=== PATIENT | female | born 1955 | race Caucasian/White ===

== ENCOUNTER 2018-11-24 05:27 | Emergency (ER) | payer MEDICAID, SELFPAY ==
[2018-11-24 05:29] VITALS: BP 154/81; PULSE 65; RESP 18; TEMP 36.4; O2SAT 95; BMI 19.8
--- NOTE | 2018-11-24 05:41 | CT_ITS ---
STUDY: CT ABDOMEN AND PELVIS WITH CONTRAST REASON FOR EXAM: Female, 63 years old. Nausea, vomiting and left lower quadrant bowel pain. Patient has elevated white count. RADIATION DOSAGE (If Supplied By Facility): CTDIvol = ( 20.8 ) mGy, DLP = ( 333.07 ) mGycm TECHNIQUE: Transaxial images were obtained from the dome of the diaphragm to the symphysis pubis without oral contrast. 100 ml IV Isovue 300 was administered. Sagittal and coronal images were reconstructed. Individualized dose optimization techniques were used for this CT. COMPARISON: None. FINDINGS: There is a nodular area within the right middle lobe measuring approximately 7.1 mm The visualized portions of the heart are within normal limits. There is hepatomegaly with diffuse hepatic enlargement. Liver measures approximately 18.6 cm in greatest cephalocaudal dimension. Small lucencies visible in the left lobe liver measuring approximately 6.5 mm in greatest dimension. There are multiple gallstones. Normal spleen. Normal pancreas. Normal bilateral adrenal glands. There is a cyst in the right kidney measuring up to 7.5 mm in greatest dimension. There are also small left-sided renal cysts. There is no evidence for hydronephrosis, hydroureter or radiopaque ureteral calculi. Normal visualized stomach. There is dilated small bowel with maximum transverse dimension of approximately 3.2 cm in greatest dimension. There is a small amount of ascites. Appears to be abnormal thickening of the nguyen of the colon suggesting possible colitis. This appears to involve the descending colon. Surgical sutures are visible within the mid small bowel suggesting sequela of previous bowel resection. This may be the site of transition as well. There is a small amount of ascites. There is non-visualization of the appendix. Normal abdominal aorta. There is venous distention of the inferior vena cava (IVC). Normal retroperitoneum. Normal urinary bladder. Normal abdominal wall. There is spondylolysis of L5. There are multilevel degenerative changes of the thoracic and lumbar spine. CT/Abdomen/Pelvis W IV Cont ONLY IMPRESSION: 1. Small bowel obstruction. 2. Possible sequela of colitis involving the descending colon. Electronically Signed: Krista Olvera MD at 7:05 EDT , Service support ,
--- NOTE | 2018-11-24 05:43 | ED.VISSUMM ---
- ER Visit Summary Date of Service: 11/24/18 Chief Complaint: Nausea and vomiting History of Present Illness: The patient is a 63 F history of prior colon CA with positive lymph nodes. Had a partial colectomy and appendectomy done at a hospital in [facility]. She does not undergo chemotherapy. Around 130 this morning started having nausea vomiting. No diarrhea. Had a bowel movement today. No melena or hematemesis. No fever. Denies any dysuria. Also complaining of abdominal pain primarily left lower quadrant. States that began after all the vomiting. Physical Examination: Older female no acute distress. Vital signs are stable and afebrile. HEENT exam mildly dry mucous membranes. Neck nontender no lymphadenopathy. Lungs clear to auscultation bilaterally. Heart regular rhythm rate about 65. No murmur. Abdomen soft. Nondistended. Normal bowel sounds. Tender primarily in the left lower quadrant. No peritoneal signs. Right upper quadrant nontender. No signs of obstruction. Well-healed midline horizontal abdominal incision. Patient is moving all 4 extremities. Neurovascular intact. Calves are nontender without edema or cords. Neurologically she is awake and alert with no focal motor deficits. Test Results: White count of 14. Hemoglobin of 12. Chemistries normal normal creatinine and gap. Liver enzymes and lipase both normal. CT abdomen and pelvis with IV contrast only shows acute small bowel obstruction with descending colitis. Read by the radiologist and reviewed by me. Emergency Department Course and Treatment: Patient treated with IV fluids for dehydration. IV Zofran for nausea and IV morphine for pain. Patient doing better on repeat exam at 7:10 AM. Currently she needs no further pain meds or nausea meds. I discussed all test results with her. She is okay with admission. Treatment Plan: I spoke to Dr. Amanda Victoria the hospitalist to admit the patient. Also Dr. Nitin Francisco to for surgical consultation Disposition: Discharge Impression: Acute nausea and vomiting with abdominal pain Acute small bowel obstruction w/ possible colitis History of prior colon CA with partial colectomy and prior appendectomy This note was generated with [employer] software. It may contain incorrect words, spelling, and punctuation that were not noted in review of the chart prior to signing ED Disposition - Plan for ED Patient: Disposition: Home or Assisted Living Instructions: ED Nausea Vomiting Prescriptions: Ondansetron [Zofran Odt] 4 mg PO Q8H PRN PRN #7 tab PRN Reason: nauea Referrals: Care Physician,No Primary [Primary Care Provider] - As Needed Additional Instructions: Plenty of fluids and rest. Increase diet slowly and as tolerated. Zofran as needed for nausea. Follow-up if not improving or return if feeling worse.
[2018-11-24] MEDS: 0.9% Normal Saline 1,000 ML 999 ML IV (05:46)
[2018-11-24] MEDS: Ondansetron 4 MG/2 ML Vial IV (05:46)
[2018-11-24 05:49] LABS: Absolute Lymphocyte Count 2.56 X10^3/ul (0.83-4.51); Absolute Neutrophil Count 10.9 X10^3/uL (2.0-7.7); Basophil# 0.02 X10^3/uL; Basophil% 0.1 % (0-1); Eosinophil# 0.01 X10^3/uL; Eosinophils% 0.1 % (0-5); Hematocrit 38.2 % (37-47); Hemoglobin 12.6 g/dl (12.0-15.0); Lymphocyte # 2.56 X10^3/ul (4.0); Lymphocyte % 18.3 % (19-41); Mean Corpuscular Hgb 25.6 pg (27.0-32.0); Mean Corpuscular Volume 77.5 fL (81-99); Mean Platelet Vol. 9.7 fl (6.2-12.0); Monocyte# 0.45 X10^3/uL; Monocyte% 3.2 % (0-10); Neutrophil # 10.94 X10^3/uL (2.7-7.7); Neutrophil % 78.1 % (47-70); Platelet Count 291 K/mm3 (150-450); RBC Distribution Width CV 19.1 % (11.6-14.6); RBC Distribution Width SD 52.4 fl (35.1-43.9); Red Blood Count 4.93 M/mm3 (4.2-5.4)
[2018-11-24 05:53] LABS: POSITIVE COUNT NO; POSITIVE DIFFERENTIAL NO; POSITIVE MORPHOLOGY NO
[2018-11-24 06:05] LABS: AST(SGOT) 20 U/L (15-37); Alanine Aminotransfer ALT/SGPT 30 U/L (13-56); Albumin, Serum 3.9 g/dL (3.2-5.0); Alkaline Phosphatase 67 U/L (45-117); Anion Gap 7 (5-15); BUN 11 mg/dL (7-18); BUN/Creat Ratio 15.7 RATIO (10-20); Bilirubin, Direct 0.06 mg/dL (0.00-0.30); Calcium,Total 8.5 mg/dL (8.5-10.1); Chloride 107 mmol/L (98-107); EST Glomerular Filtration Rate 90 mL/min (>60); Est Glom Filt Rate - Afr Amer 108 mL/min (>60); Estimated Creatinine Clearance 74.67 ml/min; Globulin 3.1 g/dL (2.2-4.2); Glucose 134 mg/dL (74-106); Lipase 185 U/L (73-393); Potassium 3.8 mmol/L (3.5-5.1); Sodium Level 139 mmol/L (136-145)
--- NOTE | 2018-11-24 06:20 | ED.DEP ---
ED Disposition - Plan for ED Patient: Disposition: Home or Assisted Living Instructions: ED Nausea Vomiting Prescriptions: Ondansetron [Zofran Odt] 4 mg PO Q8H PRN PRN #7 tab PRN Reason: nauea Referrals: Care Physician,No Primary [Primary Care Provider] - As Needed Additional Instructions: Plenty of fluids and rest. Increase diet slowly and as tolerated. Zofran as needed for nausea. Follow-up if not improving or return if feeling worse.
[2018-11-24] MEDS: Morphine 2 MG/ML Syringe IV (06:25)
--- NOTE | 2018-11-24 07:08 | NURSING ---
DR DELORIS STARR
--- NOTE | 2018-11-24 07:17 | NURSING ---
MED CAN SBO, LEUKOCYTOSIS SEMENTI
--- NOTE | 2018-11-24 07:21 | NURSING ---
DR PUENTES IN WITH PATIENT
[2018-11-24] MEDS: proMETHazine 25 MG/ML Syringe 12.5 MG IV (07:46)
[2018-11-24] MEDS: Morphine 4 MG/ML Syringe IV (07:47)
[2018-11-24 07:55] VITALS: BP 146/86; PULSE 60; RESP 17; O2SAT 93
--- NOTE | 2018-11-24 08:11 | PCM.HP.STD ---
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 No chemo. 2 of 27 nodes + (4) Lung nodule Status: Acute History of Present Illness Date of Admission: 11/24/18 Chief Complaint: abdominal pain with N/V The patient is a 63 year old F with a past medical history of colon cancer stage III with 2 of 27 lymph nodes positive who is S/P partial colectomy and appendectomy who presented to the emergency department at [facility] on 11/24/2018 complaining of abdominal pain associated with nausea/vomiting. She did not feel well on 11/23/2018 and had bloating and some nausea. She awoke in the middle of the night with abdominal pain and vomiting. She thinks she vomited approximately 8 times. She also had 3 bowel movements, the last was 1 hour prior to her presentation to the [facility] emergency department. Since that time she has not had flatus or additional bowel movements. She complains of belching and nausea. She has not had an emesis since arriving in the emergency department and she was given 4 mg of Zofran at presentation. Vital signs of presentation to the emergency room are temperature 97.5, pulse rate 65, blood pressure 154/81, respiratory rate 18 and she was 95% saturated on room air. Significant labs included an elevated white blood cell count at 14 with 78% neutrophils. Hemoglobin was 12.6 with an MCV of 77.5 and an RDW of 19.1. Platelets were within normal limits. The CMP was remarkable for a mildly increased glucose at 134. A CT scan of the abdomen and pelvis was obtained and showed dilated small bowel with a small amount of ascites. There Appeared to be abnormal thickening of the nguyen of the colon suggesting possible colitis and this appeared to involve the descending colon. There is also a nodule in the right middle lobe measuring 7.1 mm. She is being admitted to the hospital with a diagnosis of small bowel obstruction and Dr. Francisco has been consulted by Dr. Dai to participate in management. Chemotherapy was recommended due to + lymph nodes however she refused and has been doing an organic diet instead. 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 No chemo. 2 of 27 nodes + Allergies Penicillins [PCN] Allergy (Verified 11/24/18 05:41) Other hydromorphone [From Dilaudid] Adverse Reaction (Verified 11/24/18 05:41) Other Home Medications: Ambulatory Orders Medication Instructions Recorded Ondansetron [Zofran Odt] 4 mg PO Q8H PRN PRN #7 tab 11/24/18 Surgical History: - - partial colectomy due to colon CA with appendectomy Psychiatric History: No pertinent psych hx [employer] History: - - D&C due to incomplete AB? Lives: Alone Smoking Status: Never smoker Tobacco Use: Non-smoker Alcohol: None Drugs: None - *Family History Maternal History Items: Hypertension, - - possible thyroid disease Paternal History Items: - - father of a stroke Review of Systems Constitutional: Reports: Malaise. Denies: Chills, Fever Eyes: Denies: Blurred vision HEENT: Denies: Head Aches, Sinus Congestion, Sinus Drainage Cardiovascular: Denies: Chest Pain, Light Headedness, Palpitations Respiratory: Denies: Cough, Shortness of breath at rest, Sputum production Gastrointestinal: Reports: Abdominal Pain, Nausea, Vomiting, - - belching, no flatus Genitourinary: Denies: Dysuria Musculoskeletal: Denies: Joint Pain, Joint Tenderness Skin: Denies: Jaundice, Rash, Wounds Neurological: Denies: Numbness, Tingling, Focal weakness Psychiatric: Denies: Anxiety, Depression, Homicidal Ideations, Suicidal Ideations Endocrine: Denies: Hx of Thyroiditis Hematologic/ Lymphatic: Denies: Easy Bruising, Easy Bleeding VTE Information - Inpt Only VTE Present on Admission: No VTE Mechan Device Prophylaxis: SCD's, Knee High BIPIN Hose VTE Pharm Prophylaxis ordered?: Yes Patient Problems: Active and Suspected Problems Small bowel obstruction (Acute) Lung nodule (Acute) - Physical Exam General: Alert, Oriented x3, Cooperative, - - looks to be in pain....keeps repeating that she does not feel well HEENT: Atraumatic, PERRLA, EOMI, Normocephalic Oral: No Gingival or Mucosal Lesions/ Ulcerations, Dry Mucosa Neck: Supple, No JVD, Negative Carotid Bruits, No Nodes, No Nuchal Rigidity Lungs: Clear to auscultation, Normal air movement Cardiovascular: Regular Rhythm, Normal S1, Normal S2, No murmurs, Bradycardic Abdomen: Soft, Hypoactive Bowel Sounds, Distended, Tender - brooke in the RLQ Extremities: No clubbing, No cyanosis, No edema, Capillary Refill Less than 3 Seconds, No Calf Tenderness Skin: No rashes, No breakdown Musculoskeletal: No Tenderness to Palpation of Joints or Extremities Neurological: Cranial nerves II-XII grossly intact, Neuro grossly intact, Motor Exam 5/5 strength throughout Psych/Mental Status: Appropriate, Anxious Vital Signs Temp Pulse Resp BP Pulse Ox 93 F L 60 17 146/86 H 95 11/24/18 07:55 11/24/18 07:55 11/24/18 07:55 11/24/18 07:55 11/24/18 05:29 Oxygen Delivery Method Room Air Weight: 126 lb 12.253 oz Body Mass Index (BMI) 19.8 Laboratory Tests Past 24 Hrs 11/24/18 11/24/18 05:45 05:45 WBC 14.0 H RBC 4.93 Hgb 12.6 Hct 38.2 MCV 77.5 L MCH 25.6 L MCHC 33.0 RDW 19.1 H RDW Differential 52.4 H Plt Count 291 MPV 9.7 Immature Gran % (Auto) 0.200 Neut % (Auto) 78.1 H Lymph % (Auto) 18.3 L [place] % (Auto) 3.2 Eos % (Auto) 0.1 Baso % (Auto) 0.1 Absolute Neuts (auto) 10.9 H Absolute Lymphs (auto) 2.56 Total Counted Not Reportable Sodium 139 Potassium 3.8 Chloride 107 Carbon Dioxide 25.0 Anion Gap 7 BUN 11 Creatinine 0.70 Estim Creat Clear Calc 74.67 Est GFR (MDRD) Af Amer 108 Est GFR (MDRD) Non-Af 90 BUN/Creatinine Ratio 15.7 Glucose 134 H Calcium 8.5 Total Bilirubin 0.40 Direct Bilirubin 0.06 AST 20 ALT 30 Alkaline Phosphatase 67 Total Protein 7.0 Albumin 3.9 Globulin 3.1 Lipase 185 Assessment/Plan All Active Problems Small bowel obstruction (Acute) Lung nodule (Acute) Impressions 1. SBO 2. hx of colon CA with 2 of 27 nodes +, refused chemo and is doing holistic approach with organic diet and supplements 3. R mid lung nodule - new? 4. microcytosis admit to [facility] NPO IV fluids, antiemetics and pain medications no antibiotics for now - afebrile consult Dr. Francisco - he recommends surgery....pt thinks she might want to go back to [place] for surgery Recheck the lab in the AM check iron studies Code Visit Inpatient E&M: 41719 Init Hosp L2
--- NOTE | 2018-11-24 08:16 | HP.PCM_ITS ---
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 No chemo. 2 of 27 nodes + (4) Lung nodule Status: Acute History of Present Illness Date of Admission: 11/24/18 Chief Complaint: abdominal pain with N/V The patient is a 63 year old F with a past medical history of colon cancer stage III with 2 of 27 lymph nodes positive who is S/P partial colectomy and appendectomy who presented to the emergency department at [facility] on 11/24/2018 complaining of abdominal pain associated with nausea/vomiting. She did not feel well on 11/23/2018 and had bloating and some nausea. She awoke in the middle of the night with abdominal pain and vomiting. She thinks she vomited approximately 8 times. She also had 3 bowel movements, the last was 1 hour prior to her presentation to the [facility] emergency department. Since that time she has not had flatus or additional johan l movements. She complains of belching and nausea. She has not had an emesis since arriving in the emergency department and she was given 4 mg of Zofran at presentation. Vital signs of presentation to the emergency room are temperature 97.5, pulse rate 65, blood pressure 154/81, respiratory rate 18 and she was 95% saturated on room air. Significant labs included an elevated white blood cell c ount at 14 with 78% neutrophils. Hemoglobin was 12.6 with an MCV of 77.5 and an RDW of 19.1. Platelets were within normal limits. The CMP was remarkable for a mildly increased glucose at 134. A CT scan of the abdomen and pelvis was obtained and showed dilated small bowel with a small amount of ascites. There Appeared to be abnormal thickening of the nguyen of the colon suggesting possible colitis and this appeared to involve the descending colon. There is also a nodule in the right middle lobe measuring 7.1 mm. She is being admitted to the hospital with a diagnosis of small bowel obstruction and Dr. Francisco has been consulted by Dr. Dai to participate in management. Chemotherapy was recommended due to + lymph nodes however she refused and has been doing an organic diet instead. 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 No chemo. 2 of 27 nodes + Allergies Penicillins [PCN] Allergy (Verified 11/24/18 05:41) Other hydromorphone [From Dilaudid] Adverse Reaction (Verified 11/24/18 05:41) Other Home Medications: Ambulatory Orders Medication Instructions Recorded Ondansetron [Zofran Odt] 4 mg PO Q8H PRN PRN #7 tab 11/24/18 Surgical History: - - partial colectomy due to colon CA with appendectomy Psychiatric History: No pertinent psych hx [employer]OUSING [employer] History: - - D&C due to incomplete AB? Lives: Alone Smoking Status: Never smoker Tobacco Use: Non-smoker Alcohol: None Drugs: None - *Family History Maternal History Items: Hypertension, - - possible thyroid disease Paternal History Items: - - father of a stroke Review of Systems Constitutional: Reports: Malaise. Denies: Chills, Fever Eyes: Denies: Blurred vision HEENT: Denies: Head Aches, Sinus Congestion, Sinus Drainage Cardiovascular: Denies: Chest Pain, Light Headedness, Palpitations Respiratory: Denies: Cough, Shortness of breath at rest, Sputum production Gastrointestinal: Reports: Abdominal Pain, Nausea, Vomiting, - - belching, no flatus Genitourinary: Denies: Dysuria Musculoskeletal: Denies: Joint Pain, Joint Tenderness Skin: Denies: Jaundice, Rash, Wounds Neurological: Denies: Numbness, Tingling, Focal weakness Psychiatric: Denies: Anxiety, Depression, Homicidal Ideations, Suicidal Ideations Endocrine: Denies: Hx of Thyroiditis Hematologic/ Lymphatic: Denies: Easy Bruising, Easy Bleeding VTE Information - Inpt Only VTE Present on Admission: No VTE Mechan Device Prophylaxis: SCD's, Knee High BIPIN Hose VTE Pharm Prophylaxis ordered?: Yes Patient Problems: Active and Suspected Problems Small bowel obstruction (Acute) Lung nodule (Acute) - Physical Exam General: Alert, Oriented x3, Cooperative, - - looks to be in pain....keeps repeating that she does not feel well HEENT: Atraumatic, PERRLA, EOMI, Normocephalic Oral: No Gingival or Mucosal Lesions/ Ulcerations, Dry Mucosa Neck: Supple, No JVD, Negative Carotid Bruits, No Nodes, No Nuchal Rigidity Lungs: Clear to auscultation, Normal air movement Cardiovascular: Regular Rhythm, Normal S1, Normal S2, No murmurs, Bradycardic Abdomen: Soft, Hypoactive Bowel Sounds, Distended, Tender - brooke in the RLQ Extremities: No clubbing, No cyanosis, No edema, Capillary Refill Less than 3 Seconds, No Calf Tenderness Skin: No rashes, No breakdown Musculoskeletal: No Tenderness to Palpation of Joints or Extremities Neurological: Cranial nerves II-XII grossly intact, Neuro grossly intact, Motor Exam 5/5 strength throughout Psych/Mental Status: Appropriate, Anxious Vital Signs Temp Pulse Resp BP Pulse Ox 93 F L 60 17 146/86 H 95 11/24/18 07:55 11/24/18 07:55 11/24/18 07:55 11/24/18 07:55 11/24/18 05:29 Oxygen Delivery Method Room Air Weight: 126 lb 12.253 oz Body Mass Index (BMI) 19.8 Laboratory Tests Past 24 Hrs 11/24/18 11/24/18 05:45 05:45 WBC 14.0 H RBC 4.93 Hgb 12.6 Hct 38.2 MCV 77.5 L MCH 25.6 L MCHC 33.0 RDW 19.1 H RDW Differential 52.4 H Plt Count 291 MPV 9.7 Immature Gran % (Auto) 0.200 Neut % (Auto) 78.1 H Lymph % (Auto) 18.3 L [place] % (Auto) 3.2 Eos % (Auto) 0.1 Baso % (Auto) 0.1 Absolute Neuts (auto) 10.9 H Absolute Lymphs (auto) 2.56 Total Counted Not Reportable Sodium 139 Potassium 3.8 Chloride 107 Carbon Dioxide 25.0 Anion Gap 7 BUN 11 Creatinine 0.70 Estim Creat Clear Calc 74.67 Est GFR (MDRD) Af Amer 108 Est GFR (MDRD) Non-Af 90 BUN/Creatinine Ratio 15.7 Glucose 134 H Calcium 8.5 Total Bilirubin 0.40 Direct Bilirubin 0.06 AST 20 ALT 30 Alkaline Phosphatase 67 Total Protein 7.0 Albumin 3.9 Globulin 3.1 Lipase 185 Assessment/Plan All Active Problems Small bowel obstruction (Acute) Lung nodule (Acute) Impressions 1. SBO 2. hx of colon CA with 2 of 27 nodes +, refused chemo and is doing holistic approach with organic diet and supplements 3. R mid lung nodule - new? 4. microcytosis admit to [facility] NPO IV fluids, antiemetics and pain medications no antibiotics for now - afebrile consult Dr. Francisco - he recommends surgery....pt thinks she might want to go back to [place] for surgery Recheck the lab in the AM check iron studies Code Visit Inpatient E&M: 71251 Init Hosp L2
--- NOTE | 2018-11-24 09:26 | NURSING ---
CALLED [facility] FOR TRANSPORT. ETA IS 1.5 HRS
[2018-11-24 09:44] VITALS: BP 118/74; PULSE 63; RESP 17; O2SAT 97
[2018-11-24 09:50] VITALS: BP 118/74; PULSE 63; RESP 17; O2SAT 97
--- NOTE | 2018-11-24 10:09 | PCM.CONS.GEN ---
Problem List (1) Small bowel obstruction Status: Acute Reason for Consult Date of Consultation: 11/24/18 History of Present Illness: The patient is a 63 year old F who presented to the emergency room with nausea and vomiting. She reports that she ate last night and then afterwards she began having abdominal pain and nausea and vomiting. She says she is not passing any flatus. She had right hemicolectomy in July for colon cancer and intussusception. 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 No chemo. 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 Lives: Alone Smoking Status: Never smoker Tobacco Use: Non-smoker Alcohol: None Drugs: None - *Family History Maternal History Items: Hypertension, - - possible thyroid disease Paternal History Items: - - father of a stroke Review of Systems Constitutional: Denies: Anorexia, Fever HEENT: Denies: Difficulty Swallowing Cardiovascular: Denies: Chest Pain Respiratory: Denies: Cough Gastrointestinal: Reports: Abdominal Pain, Nausea, Vomiting Genitourinary: Denies: Dysuria Musculoskeletal: Denies: Joint Tenderness Skin: Denies: Jaundice Neurological: Denies: Balance problems Psychiatric: Reports: Anxiety Patient Problems: Active and Suspected Problems Small bowel obstruction (Acute) Lung nodule (Acute) - Physical Exam General: Alert, Cooperative, No apparent distress Neck: No JVD Lungs: Normal air movement Cardiovascular: Regular rate Abdomen: Soft, Distended, Tender Extremities: No clubbing Musculoskeletal: No Muscle Wasting Neurological: Cranial nerves II-XII grossly intact Psych/Mental Status: Normal Affect Vital Signs Temp Pulse Resp BP Pulse Ox 97.5 F L 63 17 118/74 97 11/24/18 05:29 11/24/18 09:50 11/24/18 09:50 11/24/18 09:50 11/24/18 09:50 Oxygen Delivery Method Room Air Weight: 126 lb 12.253 oz Body Mass Index (BMI) 19.8 Laboratory Tests Past 24 Hrs 11/24/18 11/24/18 05:45 05:45 WBC 14.0 H RBC 4.93 Hgb 12.6 Hct 38.2 MCV 77.5 L MCH 25.6 L MCHC 33.0 RDW 19.1 H RDW Differential 52.4 H Plt Count 291 MPV 9.7 Immature Gran % (Auto) 0.200 Neut % (Auto) 78.1 H Lymph % (Auto) 18.3 L [place] % (Auto) 3.2 Eos % (Auto) 0.1 Baso % (Auto) 0.1 Absolute Neuts (auto) 10.9 H Absolute Lymphs (auto) 2.56 Total Counted Not Reportable Sodium 139 Potassium 3.8 Chloride 107 Carbon Dioxide 25.0 Anion Gap 7 BUN 11 Creatinine 0.70 Estim Creat Clear Calc 74.67 Est GFR (MDRD) Af Amer 108 Est GFR (MDRD) Non-Af 90 BUN/Creatinine Ratio 15.7 Glucose 134 H Calcium 8.5 Total Bilirubin 0.40 Direct Bilirubin 0.06 AST 20 ALT 30 Alkaline Phosphatase 67 Total Protein 7.0 Albumin 3.9 Globulin 3.1 Lipase 185 Clinical Impression(s) from Imaging Studies Abdomen/Pelvis CT 11/24/18 05:41 IMPRESSION: 1. Small bowel obstruction. 2. Possible sequela of colitis involving the descending colon. Electronically Signed: Krista Olvera MD at 7:05 EDT , Service support , Assessment/Plan All Active Problems Small bowel obstruction (Acute) Lung nodule (Acute) 63-year-old female small bowel obstruction 1. The patient had nausea and vomiting which started yesterday evening. CT shows dilated proximal small bowel with a possible transition point at an anastomosis of the small bowel. No gas in the colon. The patient does have ascites as well as a white count of 14. I think the patient needs exploration and possible resection of this anastomosis depending on if this is the transition point. 2. I did offer the patient transfer back to [place] where she had her cancer surgery less than 6 months ago. I also offered the patient to stay here but I advised that she stay here she have surgery this afternoon for small bowel obstruction. I explained the risks of surgery as well as the benefits. I explained the risks including but not limited to bleeding, infection, conversion to open, possible bowel resection. The patient understands the risks and at this time she wants to return to her original surgeon and where she lives in [place]. She was only up here visiting family. I did offer to keep the patient and take her to surgery but at this time she would like to return to her surgeon in [place]. Noel Francisco MD Pager: [facility] [address] [place] [address] [address] [place] [address] Office:
--- NOTE | 2018-11-24 10:13 | CON.PCM_ITS ---
Problem List (1) Small bowel obstruction Status: Acute Reason for Consult Date of Consultation: 11/24/18 History of Present Illness: The patient is a 63 year old F who presented to the emergency room with nausea and vomiting. She reports that she ate last night and then afterwards she began having abdominal pain and nausea and vomiting. She says she is not passing any flatus. She had right hemicolectomy in July for colon cancer and intussusception. 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 No chemo. 2 of 27 nodes + Allergies Penicillins [PCN] Allergy (Verified 11/24/18 05:41) Other hydromorphone [From Dilaudid] Adverse Reaction (Verified 11/24/18 05:41) Other Home Medications: Ambulatory Orders Medication Instructions Recorded Ondansetron [Zofran Odt] 4 mg PO Q8H PRN PRN #7 tab 11/24/18 Surgical History: - - partial colectomy due to colon CA with appendectomy Psychiatric History: No pertinent psych hx [employer] History: - - D&C due to incomplete AB? Lives: Alone Smoking Status: Never smoker Tobacco Use: Non-smoker Alcohol: None Drugs: None - *Family History Maternal History Items: Hypertension, - - possible thyroid disease Paternal History Items: - - father of a stroke Review of Systems Constitutional: Denies: Anorexia, Fever HEENT: Denies: Difficulty Swallowing Cardiovascular: Denies: Chest Pain Respiratory: Denies: Cough Gastrointestinal: Reports: Abdominal Pain, Nausea, Vomiting Genitourinary: Denies: Dysuria Musculoskeletal: Denies: Joint Tenderness Skin: Denies: Jaundice Neurological: Denies: Balance problems Psychiatric: Reports: Anxiety Patient Problems: Active and Suspected Problems Small bowel obstruction (Acute) Lung nodule (Acute) - Physical Exam General: Alert, Cooperative, No apparent distress Neck: No JVD Lungs: Normal air movement Cardiovascular: Regular rate Abdomen: Soft, Distended, Tender Extremities: No clubbing Musculoskeletal: No Muscle Wasting Neurological: Cranial nerves II-XII grossly intact Psych/Mental Status: Normal Affect Vital Signs Temp Pulse Resp BP Pulse Ox 97.5 F L 63 17 118/74 97 11/24/18 05:29 11/24/18 09:50 11/24/18 09:50 11/24/18 09:50 11/24/18 09:50 Oxygen Delivery Method Room Air Weight: 126 lb 12.253 oz Body Mass Index (BMI) 19.8 Laboratory Tests Past 24 Hrs 11/24/18 11/24/18 05:45 05:45 WBC 14.0 H RBC 4.93 Hgb 12.6 Hct 38.2 MCV 77.5 L MCH 25.6 L MCHC 33.0 RDW 19.1 H RDW Differential 52.4 H Plt Count 291 MPV 9.7 Immature Gran % (Auto) 0.200 Neut % (Auto) 78.1 H Lymph % (Auto) 18.3 L [place] % (Auto) 3.2 Eos % (Auto) 0.1 Baso % (Auto) 0.1 Absolute Neuts (auto) 10.9 H Absolute Lymphs (auto) 2.56 Total Counted Not Reportable Sodium 139 Potassium 3.8 Chloride 107 Carbon Dioxide 25.0 Anion Gap 7 BUN 11 Creatinine 0.70 Estim Creat Clear Calc 74.67 Est GFR (MDRD) Af Amer 108 Est GFR (MDRD) Non-Af 90 BUN/Creatinine Ratio 15.7 Glucose 134 H Calcium 8.5 Total Bilirubin 0.40 Direct Bilirubin 0.06 AST 20 ALT 30 Alkaline Phosphatase 67 Total Protein 7.0 Albumin 3.9 Globulin 3.1 Lipase 185 Clinical Impression(s) from Imaging Studies Abdomen/Pelvis CT 11/24/18 05:41 IMPRESSION: 1. Small bowel obstruction. 2. Possible sequela of colitis involving the descending colon. Electronically Signed: Krista Olvera MD at 7:05 EDT , Service support , Assessment/Plan All Active Problems Small bowel obstruction (Acute) Lung nodule (Acute) 63-year-old female small bowel obstruction 1. The patient had nausea and vomiting which started yesterday evening. CT shows dilated proximal small bowel with a possible transition point at an anastomosis of the small bowel. No gas in the colon. The patient does have ascites as well as a white count of 14. I think the patient needs exploration and possible resection of this anastomosis depending on if this is the transition point. 2. I did offer the patient transfer back to [place] where she had her cancer surgery less than 6 months ago. I also offered the patient to stay here but I advised that she stay here she have surgery this afternoon for small bowel obstruction. I explained the risks of surgery as well as the benefits. I explained the risks including but not limited to bleeding, infection, conversion to open, possible bowel resection. The patient understands the risks and at this time she wants to return to her original surgeon and where she lives in [place]. She was only up here visiting family. I did offer to keep the patient and take her to surgery but at this time she would like to return to her surgeon in [place]. Noel Francisco MD Pager: [facility] [address] [place] [address] [address] [place] [address] Office:
== END 2018-11-24 11:10 | disposition home or self-care (01) ==
PROVIDERS: Emergency Provider Emergency Medicine
DX: K56.609 Unspecified intestinal obstruction, unspecified as to partial versus complete obstruction (principal); R10.32 Left lower quadrant pain; R11.2 Nausea with vomiting, unspecified; R91.1 Solitary pulmonary nodule; Z85.038 Personal history of other malignant neoplasm of large intestine; Z90.49 Acquired absence of other specified parts of digestive tract
CPT/HCPCS: 74177; 80048; 80076; 83690; 85025; 96361; 96374; 96375; 96376; 99285; J7030; Q9967; A4216; J2405